=== PATIENT | female | born 1990 ===

== ENCOUNTER 2017-12-10 20:59 | Emergency (ER) | payer MEDICAID ==
[2017-12-10] MEDS ORDERED: 0.9 % SODIUM CHLORIDE 1000ML 1,000 ML IV SCH (21:30)
--- NOTE | 2017-12-10 21:39 | Emergency Department Record ---
History of Present Illness - General Chief Complaint: Fever Stated Complaint: FEVER AND CHILLS, BODY ACHES Time Seen by Provider: 12/10/17 21:26 Source: Patient Mode of Arrival: Wheelchair Limitations: No limitations - History of Present Illness Initial Comments: 27 yo female presents to ED for evaluation of fever symptoms that began this afternoon (99.6), reports taking Tylenol prior to arrival. 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 Patient denies abdominal pain, flank pain, or cough symptoms. Patient also denies any rashes or open wounds. Patient does report a history of cerebral palsy at . MD Complaint: Fever Onset/Timin -: Hour(s) Maximum Temperature: 99.5 F Temperature Source: Oral Associated Symptoms: Chills, Sore throat Treatments Prior to Arrival: Acetaminophen - Related Data Previous Rx's Medication Instructions Recorded Nystatin 1 apply TP BID #15 gm 04/24/16 Cephalexin [Keflex] 500 mg PO TID #21 cap 12/11/17 Allergies Allergy/AdvReac Type Severity Reaction Status Date / Time adhesive tape Allergy ITCHING Verified 01/04/16 10:24 morphine Allergy ITCHING Verified 01/04/16 10:24 vancomycin Allergy ITCHING Verified 01/04/16 10:24 Travel Screening - Travel/Exposure Within Last 30 Days Have you traveled within the last 30 days?: No - Travel Symptoms Symptom Screening: None Review of Systems Constitutional: Reports: Chills, Fever. Denies: Malaise, Night sweats Eyes: Denies: Eye discharge, Eye pain ENT: Denies: Congestion, Ear pain Respiratory: Denies: Cough, Dyspnea Cardiovascular: Denies: Chest pain, Dyspnea on exertion, Edema Endocrine: Denies: Fatigue, Heat or cold intolerance Gastrointestinal: Denies: Abdominal pain, Nausea, Vomiting Genitourinary: Denies: Incontinence, Retention Musculoskeletal: Denies: Arthralgia, Back pain Skin: Denies: Bruising, Change in color Neurological: Denies: Headache Psychiatric: Denies: Anxiety Hematological/Lymphatic: Denies: Anemia, Blood Clots Past Medical History - SOCIAL HISTORY Smoking Status: Never smoker - RESPIRATORY Hx Respiratory Disorders: No - CARDIOVASCULAR Hx Cardio Disorders: No - NEURO Hx Neuro Disorders: Yes Comment:: cerebral palsy - GI Hx GI Disorders: Yes Hx Reflux: Yes - Hx Genitourinary Disorders: No - ENDOCRINE Hx Endocrine Disorders: Yes Comment:: hypoglycemic - MUSCULOSKELETAL Hx Musculoskeletal Disorders: Yes Comment:: scoliosis - PSYCH Hx Psych Problems: Yes Hx Anxiety: Yes Hx Depression: Yes - HEMATOLOGY/ONCOLOGY Hx Hematology/Oncology Disorders: Yes Hx Anemia: Yes Family Medical History Any Significant Family History?: Yes Hx Diabetes: Father Hx Heart Disease: Mother Hx Resp Disorders: Mother Physical Exam - General General Appearance: Alert, Oriented x3, Cooperative, Mild distress Limitations: No limitations - Head Head exam: Atraumatic, Normocephalic, Normal inspection Head exam detail: negative: Abrasion, Contusion, Landers's sign, General tenderness, Hematoma, Laceration - Eye Eye exam: Normal appearance. negative: Conjunctival injection, Periorbital swelling, Periorbital tenderness, Scleral icterus - ENT Ear exam: negative: Auricular hematoma, Auricular trauma Nasal Exam: negative: Active bleeding, Discharge, Dried blood, Foreign body Mouth exam: negative: Drooling, Laceration, Muffled voice, Tongue elevation Teeth exam: Dental caries - Neck Neck exam: Normal inspection. negative: Meningismus, Tenderness - Respiratory Respiratory exam: Normal lung sounds bilaterally. negative: Rales, Respiratory distress, Rhonchi, Stridor - Cardiovascular Cardiovascular Exam: Normal rhythm, Normal heart sounds, Tachycardia - GI/Abdominal GI/Abdominal exam: Soft, Other (Urostomy to the LLQ, gapapentin pump SQ RLQ. no pain with palpation on examination.). negative: Rebound, Rigid, Tenderness - Rectal Rectal exam: Deferred - exam: Deferred - Extremities Extremities exam: negative: Pedal edema, Tenderness - Back Back exam: Denies: CVA tenderness (R), CVA tenderness (L) - Neurological Neurological exam: Alert, Oriented X3 - Psychiatric Psychiatric exam: Normal affect, Normal mood - Skin Skin exam: Normal color. negative: Abrasion Type of lesion: negative: abrasion Course Vital Signs 12/10/17 21:03 Temperature 98.9 F Pulse Rate 120 H Respiratory 20 Rate Blood Pressure 111/54 Pulse Ox 99 - Reevaluation(s) Reevaluation #1: 12/10/17 23:02 CXR: No definite acute fracture is present Ward rods in place Reevaluation #2: 12/10/17 23:05 Laboratory studies were reviewed: WBC 12.5 UA: 10-15 WBCs 7-10 RBCs 0-2 Epithelial cells 1+ Bacteria Patient was updated on all results, will initiate treatment with Rocephin with Keflex for outpatient treatment of the patient's UTI/Pyelonephritis. Reevaluation #3: 12/11/17 00:25 Pulse improved to 104, no fever while in the ED. Patient appears stable for discharge with outpatient treatment for UTI/ pyelonephritis with return if symptoms worsen. Medical Decision Making - Lab Data Result diagrams: 12/10/17 21:50 12/10/17 21:50 Disposition Disposition: Discharge Clinical Impression: Pyelonephritis Disposition: Home, Self-Care Condition: (2) Stable Instructions: Kidney Infection (ED) Additional Instructions: Return to ED if your symptoms worsen or if you have any concerns. Keflex as directed. Follow-up with your family doctor in 3-5 days as directed. Prescriptions: Cephalexin [Keflex] 500 mg PO TID #21 cap Forms: Patient Portal Access Time of Disposition: 00:27 Quality - Quality Measures Quality Measures: N/A - Blood Pressure Screening Does Patient Have Any of the Following: No Blood Pressure Classification: Normal BP Reading Systolic Measurement: 111 Diastolic Measurement: 54 Screening for High Blood Pressure: < Normal BP, F/U Not Required > [G8783]
[2017-12-10 22:02] LABS: BASO % 0.2 % (0-6); EOS % 0.2 % (0-6); GRAN % 69.1 % (47-80); HEMATOCRIT 41.1 % (35.0-47.0); HEMOGLOBIN 13.5 gm/dl (11.6-16.0); LYMPH % 22.7 % (16-45); MEAN CELL VOLUME 94.3 fl (81-97); MEAN CORPUSCULAR HGB CONC 32.8 g/dl (32-36); MEAN PLATELET VOLUME 10.8 fl (7.4-10.4); MONO % 7.8 % (0-9); PLATELET COUNT 267 K/uL (130-400); RED BLOOD COUNT 4.36 M/uL (3.80-5.40); RED CELL DISTRIBUTION WIDTH 12.1 % (11.5-14.5); WHITE BLOOD COUNT W/O DIFF 12.5 K/uL (4.2-12.2)
[2017-12-10 22:19] LABS: BLOOD UREA NITROGEN 10 mg/dL (6-20); CREATININE 0.2 mg/dL (0.5-0.9); EST GLOMERULAR FILTRATION RATE > 60 mL/min
[2017-12-10 22:20] LABS: TOTAL PROTEIN 7.9 g/dL (6.6-8.7)
[2017-12-10 22:22] LABS: GLUCOSE,RANDOM 120 mg/dL (74-109)
[2017-12-10 22:25] LABS: ALKALINE PHOSPHATASE 75 U/L (35-104); ALT/SGPT 11 U/L (<33); AST/SGOT 11 U/L (10.0-35.0)
[2017-12-10 22:52] LABS: URINE APPEARANCE CLEAR; URINE BILIRUBIN NEGATIVE (NEGATIVE); URINE BLOOD SMALL (NEGATIVE); URINE COLOR YELLOW; URINE GLUCOSE (UA) NEGATIVE (NEGATIVE); URINE KETONE NEGATIVE (NEGATIVE); URINE LEUKOCYTE ESTERASE LARGE (NEGATIVE); URINE NITRITE NEGATIVE (NEGATIVE)
[2017-12-10 23:03] LABS: URINE BACTERIA 1+; URINE EPITHELIAL CELLS 0 - 2 (FEW)
[2017-12-10] MEDS ORDERED: CEFTRIAXONE SODIUM 1 GM in 0.9 % SODIUM CHLORIDE 100ML 100 ML IVPB ONE (23:07)
[2017-12-10] MEDS ORDERED: ONDANSETRON HCL IV 4 MG/2 ML VIAL IVP ONE (23:31)
[2017-12-10] MEDS ORDERED: HYDROCODONE/APAP 5/325MG TABLET PO ONE (23:31)
--- NOTE | 2017-12-12 08:03 | RADIOLOGY REPORT ---
EXAM: CHEST 2 VIEWS HISTORY: FEVER AND BODY ACHES SINCE SHE WOKE UP THIS MORNING. TECHNIQUE: AP and lateral views. COMPARISON: None. FINDINGS: Cosme rods are partially seen extending from the mid thoracic down into the lumbar region with a thoracolumbar dextroscoliosis. Heart size at about the upper limits of normal allowing for the AP positioning. Lateral view somewhat rotated with the posterior aspect of the hemithorax largely obscured on the lateral view by the patient's arms and Cosme rods. However, no definite acute infiltrate seen and no pleural effusion or pneumothorax evident. Air beneath both hemidiaphragms appears to be intraluminal probably within the colon of the hepatic flexure on the right and a combination of the splenic flexure and stomach on the left. IMPRESSION: 1. THORACOLUMBAR DEXTROSCOLIOSIS WITH COSME RODS IN PLACE. 2. QUITE LIMITED LATERAL VIEW BUT NO DEFINITE ACUTE INFILTRATE SEEN. JOB NUMBER: [id number] MTDD
== END 2017-12-11 00:44 | disposition home or self-care (01) ==
LOC: ER 20:59
DX: N10 Acute pyelonephritis (principal); R50.81 Fever presenting with conditions classified elsewhere; J02.9 Acute pharyngitis, unspecified; G80.9 Cerebral palsy, unspecified
CPT/HCPCS: 99284 ×2; 96365; 96375; 85025; 80053; 81001; 71046; J2405; J7030